=== PATIENT | female | born 1980 | race Caucasian/White ===

== ENCOUNTER 2018-07-24 06:31 | Day surgery (SDC) | payer OTHER ==
[~2018-07-24 06:31] MED LIST: Buffered Lidocaine 1% SYRIN* 1 ML/SYRINGE INTRADERM ONE; Dexamethasone IV* 4 MG/ML 1 ML (4 MG) IV SLOW PU ONE; Famotidine IV* 10 MG/ML 2 ML (20 mg) IV ONE; Lactated Ringers 1000 ML Bag* 1,000 ML IV SCH
[2018-07-24] MEDS ORDERED: Famotidine IV* 10 MG/ML 2 ML (20 mg) ONE (06:57)
[2018-07-24] MEDS ORDERED: ceFAZolin 2 GM PREMIX in ORs 2 GM/50 ML BAG IVPB ONE (06:57)
[2018-07-24] MEDS ORDERED: Dexamethasone IV* 4 MG/ML 1 ML (4 MG) ONE (06:57)
[2018-07-24] MEDS ORDERED: fentaNYL* 50 MCG/ML 2 ML VIAL (100 MCG VIAL) ONE (07:29)
[2018-07-24] MEDS ORDERED: Midazolam* 1 MG/ML 2 ML VIAL (2 MG) ONE (07:29)
[2018-07-24] MEDS ORDERED: Ketorolac INJ* 30 MG/ML 1 ML VIAL ONE ×2 (07:32→10:02)
[2018-07-24] MEDS ORDERED: Lidocaine 2% PF * 5 ML VIAL ONE (07:32)
[2018-07-24] MEDS ORDERED: Propofol* 10 MG/ML 20 ML BTL ONE (07:32)
[2018-07-24] MEDS ORDERED: Bupivacaine 0.25% SDV PF* 10 ML VIAL INJ ONE (07:33)
[2018-07-24] MEDS ORDERED: fentaNYL* 50 MCG/ML 2 ML VIAL (100 MCG VIAL) IV PRN (08:18)
[2018-07-24] MEDS ORDERED: Ondansetron INJ* 2 MG/ML VIAL IV PRN (08:18)
[2018-07-24] MEDS ORDERED: Ketorolac INJ* 30 MG/ML 1 ML VIAL IV PRN (08:18)
[2018-07-24] MEDS ORDERED: Naloxone* 0.4 MG/ML 1 ML VIAL IV PRN (08:18)
[2018-07-24 10:37] VITALS: BP 120/78
--- NOTE | 2018-07-24 12:08 | OP ---
DATE OF OPERATION: 07/24/18 - [facility] DATE OF : 76 SURGEON: Jasvir Breen MD. PLASTIC PANEL INSTALLER: DOMINGO Simpson. An clinical trial assistant was needed for the procedure to aid in positioning of the arm and retraction. ANESTHESIOLOGIST: Dr. Erickson. ANESTHESIA: General. PRE-OP DIAGNOSES: 1. 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 2. Right thumb chronic partial radial collateral ligament metacarpophalangeal joint tear. POST-OP DIAGNOSES: 1. 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 2. Right thumb chronic partial radial collateral ligament metacarpophalangeal joint tear. OPERATIVE PROCEDURE: 1. Repair of right thumb ulnar collateral ligament of the metacarpophalangeal joint. 2. Repair of the right thumb radial collateral ligament with curettage of the bone cyst, again of the metacarpophalangeal joint. INDICATIONS: Jeannie is 37, the tear happened quite some time ago. We have been watching it. It simply has not ever stopped hurting her and is very limiting to her. We had talked about her options, she had wanted to proceed with surgery. She understands the risk of stiffness, the risk of persistent instability despite doing surgery, the risk of persistent pain despite doing surgery. ESTIMATED BLOOD LOSS: 2 mL. COMPLICATIONS: None. FINDINGS: See above and below. DESCRIPTION OF PROCEDURE: Jeannie was seen in the preoperative holding area. The correct site, side, and procedure were identified. We came back to the operating room where anesthesia was induced. The arm was then prepped and draped in the usual fashion and a time-out was performed. I performed a thumb block with 0.25% plain Marcaine. I then exsanguinated the arm with the tourniquet was inflated to 250 mmHg. I made a lazy-S incision over the ulnar aspect of the MCP joint. Dissection was carried down and full-thickness flaps were raised off the adductor aponeurosis. This was incised in line with the tendon and retracted dorsally and palmarly. The tear was immediately apparent. There was a dorsal portion of the ligament that was torn off and was seeming like a nodule. This portion was excised. More palmarly, I was able to free up the ligament through the distal portion where it had torn off the proximal phalanx. Once I had the ligament mobilized, I was able to rotate it and advance it back to its normal alignment. I prepared the base of the proximal phalanx with a curette and rongeur until I had some good bleeding bone. I then placed two Mini Mitek sutures anchors in the base of the proximal phalanx in the insertion site of the ulnar collateral ligament. I used the 2-0 Ethibond suture to repair the ligament and get good [id number] apposition by performing a little whip stitch and then applying good tension on the post suture to bring the ligament down to bone. Both sutures were tied off. I then augmented the repair with multiple peripheral 4-0 Ethibond sutures to bring the edges of the tendon very nicely flush back down to the bone, sewing it to the adjacent periosteum and to the volar plate more palmarly. After I completed the repair I checked the stability at 0 and 30 degrees and it was excellent. I irrigated out the wound. The adductor aponeurosis was closed with 4-0 Vicryl and a couple of 4-0 Ethibond sutures. The skin was closed with 4-0 nylon suture. I then came over to the radial side. I checked the stability, there was a little lax at 30 degrees of flexion. I went ahead and performed a radial midaxial incision over the radial aspect of the MP joint. Dissection was carried down. Extensor mechanism was split in line with the tendon to expose the radial collateral ligament. The more dorsal portion was torn off, the torn portion was debrided with the [place] blade. The bone cyst was encountered and curetted out until I had good bleeding bone. I placed 1 Mini Mitek suture right in the base of the bone cyst. I then used the 2-0 Ethibond suture off the suture anchor to repair the dorsal portion of the ligament back down to the bone. This was augmented with a couple of 3-0 Ethibond [id number] sutures. I then checked the stability and it was excellent. I therefore irrigated out the wound. The tendon was split, it was repaired with 4-0 Vicryl and a couple of 4-0 Ethibond sutures. Skin was closed with 4-0 nylon suture. Some additional Marcaine was placed all around the operative sites. The wounds were dressed with Xeroform, 4x4s, sterile Webril; and an then a thumb spica splint all the way out to the tip of the thumb was applied. She was then woken up and taken to the recovery room in stable condition. [id number]/[facility] #: [id number] JACYD
== END 2018-07-24 10:42 | disposition home or self-care (01) ==
LOC: OREAST 06:31
PROVIDERS: ATTEND Orthopaedic Surgery Hand Surgery
DX: S63.641A Sprain of metacarpophalangeal joint of right thumb, initial encounter (principal); X58.XXXA Exposure to other specified factors, initial encounter; Y92.9 Unspecified place or not applicable
CPT/HCPCS: 81025; C1713; J0690; J1100; J1885; J2250; J2704; J3010; J3490